=== PATIENT | female | born 1990 | race American Indian/Alaskan Native ===

== ENCOUNTER 2019-03-10 10:30 | Emergency (ER) | payer SELFPAY ==
[2019-03-10 10:44] VITALS: BP 114/73
--- NOTE | 2019-03-10 11:41 | Emergency Department Report ---
ED Dysuria HPI - [facility] Chief Complaint: Urogenital-Female Stated Complaint: HEADACHE Time Seen by Provider: 03/10/19 11:30 ED Review of Systems ROS: Stated complaint: HEADACHE Other details as noted in HPI ED Past Medical Hx - Past Medical History Previous Medical History?: No - Surgical History Past Surgical History?: No - Social History Smoking Status: Never Smoker Substance Use Type: None Dysuria Exam - Exam General: Vital signs noted. No distress. Alert and acting appropriately. ED Course Vital Signs 03/10/19 10:38 Temperature 98.7 F Pulse Rate 92 H Respiratory 18 Rate Blood Pressure 114/73 O2 Sat by Pulse 99 Oximetry Critical care attestation.: If time is entered above; I have spent that time in minutes in the direct care of this critically ill patient, excluding procedure time. ED Disposition Condition: Stable
[2019-03-10 12:30] LABS: Bacteria,Urine 1+ /HPF (Negative); Bilirubin,Urine NEG (Negative); Blood,Urine NEG (Negative); Color,Urine Colorless (Yellow); Protein,Urine <15 mg/dL mg/dL (Negative); Urobilinogen,Urine < 2.0 mg/dL (<2.0)
[2019-03-10 12:32] LABS: HCG Qualitative,Urine Negative (Negative)
[2019-03-10] MEDS ORDERED: FIORICET PO ONE (12:37)
[2019-03-10] MEDS ORDERED: SUDAFED 12 HR PO PRN (12:37)
--- NOTE | 2019-03-10 13:18 | Emergency Department Report ---
ED Headache HPI - General Chief Complaint: Urogenital-Female Stated Complaint: HEADACHE Time Seen by Provider: 03/10/19 11:30 - History of Present Illness Initial Comments: Pt. is a 29 y.o male who presents to ED c/o intermittent, dull/sharp, non radiation 8/10 intensity type headache x 5 days. Pt. states pain located to frontal and orbital region. Patient denies any trauma falls or injuries to the head. Patient states she is not a history of panic years ago. Patient states she is to take the medication but cannot recall the name of the medication. Pt. states that she hasn't taken any medication for this headache today Pt. denies fever, chills, nausea, vomiting, trauma, vision impairment, Timing/Duration: 24 hours Quality: moderate Head Injury Location: frontal, global Recent Head Trauma: no recent headache/trauma, frequent headaches Associated Symptoms: nasal congestion. denies: fatigue, facial pain, nausea/vomiting, seizures, stiff neck Allergies/Adverse Reactions: Allergies No Known Allergies Allergy (Unverified 03/10/19 10:32) Home Medications: Ambulatory Orders Butalb/Acetamin/Caff 50-325-40 [Fioricet 50-325-40] 1 tab PO Q8H PRN #30 tablet 03/10/19 Pseudoephedrine ER [Sudafed 12 Hr] 120 mg PO Q12HR PRN #10 tablet 03/10/19 ED Review of Systems ROS: Stated complaint: HEADACHE Other details as noted in HPI Comment: All other systems reviewed and negative ED Past Medical Hx - Past Medical History Previous Medical History?: No - Surgical History Past Surgical History?: No - Social History Smoking Status: Never Smoker Substance Use Type: None - Medications Home Medications: Home Medications Medication Instructions Recorded Confirmed Last Taken Type Butalb/Acetamin/Caff 50-325-40 1 tab PO Q8H PRN #30 tablet 03/10/19 Unknown Rx [Fioricet 50-325-40] Pseudoephedrine ER [Sudafed 12 Hr] 120 mg PO Q12HR PRN #10 tablet 03/10/19 Unknown Rx ED Physical Exam - General Limitations: No Limitations General appearance: alert, in no apparent distress - Head Head exam: Present: atraumatic, normocephalic - Eye Eye exam: Present: normal appearance, PERRL, EOMI. Absent: nystagmus Pupils: Present: normal accommodation - ENT ENT exam: Present: mucous membranes moist - Neck Neck exam: Present: normal inspection - Respiratory Respiratory exam: Present: normal lung sounds bilaterally. Absent: respiratory distress - Cardiovascular Cardiovascular Exam: Present: regular rate, normal rhythm. Absent: systolic murmur, diastolic murmur, rubs, gallop - GI/Abdominal GI/Abdominal exam: Present: soft, normal bowel sounds - Extremities Exam Extremities exam: Present: normal inspection - Back Exam Back exam: Present: normal inspection - Neurological Exam Neurological exam: Present: alert, oriented X3, CN II-XII intact, normal gait, reflexes normal - Expanded Neurological Exam Expanded Patient oriented to: Present: person, place, time Speech: Present: fluid speech Cerebellar function: Finger to Nose: Normal Motor strength exam: RUE: 5, LUE: 5, RLE: 5, LLE: 5 Best Eye Response (Leonardo): (4) open spontaneously Best Motor Response (Leonardo): (6) obeys commands Best Verbal Response (Leonardo): (5) oriented Colton Total: 15 - Psychiatric Psychiatric exam: Present: normal affect, normal mood - Skin Skin exam: Present: warm, dry, intact, normal color. Absent: rash ED Course Vital Signs 03/10/19 03/10/19 10:38 13:30 Temperature 98.7 F Pulse Rate 92 H Respiratory 18 18 Rate Blood Pressure 114/73 O2 Sat by Pulse 99 Oximetry ED Medical Decision Making - Medical Decision Making 29-year-old female presents with migraine headache was likely secondary to nasal/sinus congestion. Patient received fioricet and pseudoephedrine in the ED. Her analysis and urine test was conducted. All results are negative Patient had no neurological deficit. Patient's vital signs are normal she is able to be alert and oriented and ambulatory. Discussed follow-up with primary care physician. Referrals given to patient. Critical care attestation.: If time is entered above; I have spent that time in minutes in the direct care of this critically ill patient, excluding procedure time. ED Disposition Clinical Impression: Migraine headache without aura Disposition: DC-01 TO HOME OR SELFCARE Is pt being admited?: No Does the pt Need Aspirin: No Condition: Stable Instructions: Acute Headache (ED), Ocular Migraine (ED) Additional Instructions: Make sure to follow up with the primary care physician as discussed. Take all your medications as you've been prescribed. If you have any worsening symptoms or develop new symptoms please return to ED immediately. Prescriptions: Butalb/Acetamin/Caff 50-325-40 [Fioricet 50-325-40] 1 tab PO Q8H PRN #30 tablet PRN Reason: Headache Pseudoephedrine ER [Sudafed 12 Hr] 120 mg PO Q12HR PRN #10 tablet PRN Reason: Allergy Symptoms Referrals: PRIMARY CARE, [Primary Care Provider] - 3-5 Days MELITA DARNELL MD [Staff Physician] - 3-5 Days [facility] [Outside] - 3-5 Days TRINIDAD ROACH MD [Staff Physician] - 3-5 Days Forms: Accompanied Note, Work/School Release Form(ED) Time of Disposition: 13:19
== END 2019-03-10 13:30 | disposition home or self-care (01) ==
LOC: ED 10:30
DX: G43.009 Migraine without aura, not intractable, without status migrainosus (principal); Z79.899 Other long term (current) drug therapy
CPT/HCPCS: 81001; 81025

== ENCOUNTER 2020-09-20 11:18 | Emergency (ER) | payer SELFPAY ==
[2020-09-20 12:48] VITALS: BP 111/77
--- NOTE | 2020-09-20 14:06 | Emergency Department Report ---
ED Fall HPI - General Chief Complaint: Neck Pain/Injury Stated Complaint: CHEST/BACK/PAIN/HEADACHE Time Seen by Provider: 09/20/20 13:36 Source: patient Mode of arrival: Ambulatory - History of Present Illness Initial Comments: 30-year-old female presents to the ER today complaint of persistent neck pain and back pain after an accidental fall a month ago. Patient states that she was in her house, when she slipped on a wet floor and fell backwards. She states she was carrying a heavy box on her head at the time and the box struck her in neck as well. She states that she struck her head but denies any LOC. She states that she has been having posterior neck pain and diffuse back pain since the injury. She states that she had was not seen at the time of the injury, and t his is the first time she came to get checked out since the injury. She complains of pain with certain movements. She states that the pain in the neck radiates into the shoulders. She has been taking [id number] ibuprofen and Tylenol without much relief. She states that she currently does not have a primary care doctor. Denies any associated abdominal pain, chest pain, bowel or bladder incontinence, saddle anesthesia, lower extremity weakness, numbness or tingling or any other symptoms at this time. MD Complaint: fall, other (neck and back pain) -: month(s) (1) - Related Data Previous Rx's Medication Instructions Recorded Last Taken Type Butalb/Acetamin/Caff 50-325-40 1 tab PO Q8H PRN #30 tablet 03/10/19 Unknown Rx [Fioricet 50-325-40] Pseudoephedrine ER [Sudafed 12 Hr] 120 mg PO Q12HR PRN #10 tablet 03/10/19 Unknown Rx Ibuprofen [Motrin] 600 mg PO Q8H PRN #30 tablet 09/20/20 Unknown Rx methOCARBAMOL [Robaxin TAB] 750 mg PO Q8H PRN #30 tablet 09/20/20 Unknown Rx methylPREDNISolone [Medrol 4MG 4 mg PO DAILY #1 tab.ds.pk 09/20/20 Unknown Rx DOSEPAK (21 tabs)] Allergies Allergy/AdvReac Type Severity Reaction Status Date / Time No Known Allergies Allergy Unverified 03/10/19 10:32 ED Review of Systems ROS: Stated complaint: CHEST/BACK/PAIN/HEADACHE Other details as noted in HPI Comment: All other systems reviewed and negative Constitutional: denies: chills, diaphoresis, fever, malaise, weakness Eyes: denies: eye pain, eye discharge, vision change ENT: denies: ear pain, throat pain, dental pain, hearing loss, epistaxis, congestion Respiratory: denies: cough, shortness of breath, wheezing Cardiovascular: denies: chest pain, palpitations Endocrine: no symptoms reported Gastrointestinal: denies: abdominal pain, nausea, vomiting, diarrhea, constipation, hematemesis, hematochezia Musculoskeletal: back pain, other (neck pain) Skin: denies: rash, lesions Neurological: denies: headache, weakness, paresthesias Psychiatric: denies: anxiety, depression, auditory hallucinations, visual hallucinations, homicidal thoughts, suicidal thoughts Hematological/Lymphatic: denies: easy bleeding, easy bruising ED Past Medical Hx - Past Medical History Previous Medical History?: No - Surgical History Past Surgical History?: No - Social History Smoking Status: Never Smoker Substance Use Type: None - Medications Home Medications: Home Medications Medication Instructions Recorded Confirmed Last Taken Type Butalb/Acetamin/Caff 50-325-40 1 tab PO Q8H PRN #30 tablet 03/10/19 Unknown Rx [Fioricet 50-325-40] Pseudoephedrine ER [Sudafed 12 Hr] 120 mg PO Q12HR PRN #10 tablet 03/10/19 Unknown Rx Ibuprofen [Motrin] 600 mg PO Q8H PRN #30 tablet 09/20/20 Unknown Rx methOCARBAMOL [Robaxin TAB] 750 mg PO Q8H PRN #30 tablet 09/20/20 Unknown Rx methylPREDNISolone [Medrol 4MG 4 mg PO DAILY #1 tab.ds.pk 09/20/20 Unknown Rx DOSEPAK (21 tabs)] ED Physical Exam - General Limitations: No Limitations General appearance: alert, in no apparent distress - Head Head exam: Present: atraumatic, normocephalic, normal inspection - Eye Eye exam: Present: normal appearance, PERRL, EOMI Pupils: Present: normal accommodation - ENT ENT exam: Present: normal exam, mucous membranes moist - Neck Neck exam: Present: normal inspection, tenderness (diffuse midline and bilateral paraspinal muscle tenderness as well as trapezius muscle tenderness with some mild spasms), full ROM - Respiratory Respiratory exam: Present: normal lung sounds bilaterally. Absent: respiratory distress, wheezes, rales, rhonchi - Cardiovascular Cardiovascular Exam: Present: regular rate, normal rhythm, normal heart sounds - GI/Abdominal GI/Abdominal exam: Present: soft. Absent: distended, tenderness, guarding - Extremities Exam Extremities exam: Present: normal inspection - Back Exam Back exam: Present: normal inspection, full ROM, muscle spasm, paraspinal tenderness (Bilateral mid thoracic areas), vertebral tenderness (Mainly mid thoracic spine, and lower thoracic spine) - Neurological Exam Neurological exam: Present: alert, oriented X3, CN II-XII intact, normal gait. Absent: motor sensory deficit - Psychiatric Psychiatric exam: Present: normal affect, normal mood - Skin Skin exam: Present: intact ED Course Vital Signs 09/20/20 12:46 Temperature 97.6 F Pulse Rate 75 Respiratory 18 Rate Blood Pressure 111/77 O2 Sat by Pulse 98 Oximetry ED Medical Decision Making - Radiology Data Patient: LIZBETH GOLDSTEIN MR#: [id number] : 1990 Acct:[id number] Age/Sex: 30 / F ADM Date: 09/20/20 Loc: ED Attending Dr: Ordering Physician: COLTON العلي Date of Service: 09/20/20 Procedure(s): XR spine cervical 2-3V Accession Number(s): [id number] cc: COLTON العلي Fluoro Time In Minutes: XR spine thoracic 2 views, XR spine cervical 3 views INDICATION / CLINICAL INFORMATION: fall/back pain. COMPARISON: None available. FINDINGS: Cervical spine: Cervical spinal alignment is preserved. Vertebral body heights are intact. There is no evidence of fracture. Multilevel posterior marginal osteophytes with mild disc space narrowing at C4-C5 and C5-C6. Odontoid view is intact. Prevertebral soft tissues are within normal limits. Visualized lung apices are clear. Thoracic spine: Thoracic spinal alignment is preserved. Vertebral body heights are intact. There is no evidence of fracture. Mild multilevel degenerative disc disease noted. Soft tissues are unrem arkable. Visualized lungs are clear. IMPRESSION: 1. No acute osseous abnormality. 2. Mild cervical and thoracic spondylosis Signer Name: Rebecca Lott MD Signed: 09/20/2020 3:09 PM Workstation Name: [id number] Transcribed By: HOLLEY Dictated By: REBECCA LOTT MD Electronically Authenticated By: REBECCA LOTT MD Signed Date/Time: 09/20/20 1509 DD/ 1507 TD/TT: - Medical Decision Making 1608: Xrays show degenerative disc changes/arthritic changes but otherwise nothing acute. Patient currently is well-appearing, she is not in any acute distress, she is not toxic and appears well-hydrated. She is neurologically intact with a normal gait in the ER. Her vital signs are stable. At this time there is no indication for any further work-up, or imaging, admission or specialist consults. Discussed imaging results with patient. Discussed suspected diagnosis with patient. Recommend that she follows up outpatient with orthopedic/air quality specialist for further evaluation with possible MRI especially if her symptoms persist and also should be given referral to primary care doctor. Patient expressed understanding of instructions and agree with plan. Patient was stable at time of discharge. - Differential Diagnosis Subluxation of the spine, vertebral fracture Critical care attestation.: If time is entered above; I have spent that time in minutes in the direct care of this critically ill patient, excluding procedure time. ED Disposition Clinical Impression: DDD (degenerative disc disease), cervical, DDD (degenerative disc disease), thoracic, Back injury, Neck injury Disposition: - TO HOME OR SELFCARE Is pt being admited?: No Does the pt Need Aspirin: No Condition: Stable Instructions: Thoracic Strain, Degenerative Disk Disease, Neck Contusion, [id number] Additional Instructions: I recommend that you take the Medrol Dosepak and the Motrin and the muscle relaxer as prescribed. It is important that you follow-up with the accounting specialist/air quality specialist ([facility]) especially if your symptoms persist. You can also follow-up with primary care doctor listed on your discharge instructions. Return to the ER if your symptoms changes or worsens in any way. Prescriptions: methylPREDNISolone [Medrol 4MG DOSEPAK (21 tabs)] 4 mg PO DAILY #1 tab.ds.pk Ibuprofen [Motrin] 600 mg PO Q8H PRN #30 tablet PRN Reason: Pain methOCARBAMOL [Robaxin TAB] 750 mg PO Q8H PRN #30 tablet PRN Reason: pain Referrals: MANI HARMON MD [Staff Physician] - 3-5 Days LESA ALSTON MD [Staff Physician] - 3-5 Days Time of Disposition: 15:59
--- NOTE | 2020-09-20 15:13 | XRay Report ---
XR spine thoracic 2 views, XR spine cervical 3 views INDICATION / CLINICAL INFORMATION: fall/back pain. COMPARISON: None available. FINDINGS: Cervical spine: Cervical spinal alignment is preserved. Vertebral body heights are intact. There is n o evidence of fracture. Multilevel posterior marginal osteophytes with mild disc space narrowing at C 4-C5 and C5-C6. Odontoid view is intact. Prevertebral soft tissues are within normal limits. Visualiz ed lung apices are clear. Thoracic spine: Thoracic spinal alignment is preserved. Vertebral body heights are intact. There is n o evidence of fracture. Mild multilevel degenerative disc disease noted. Soft tissues are unremarkabl e. Visualized lungs are clear. IMPRESSION: 1. No acute osseous abnormality. 2. Mild cervical and thoracic spondylosis Signer Name: Terrell Lott MD Signed: 09/20/2020 3:09 PM Workstation Name: [id number]
== END 2020-09-20 14:00 | disposition home or self-care (01) ==
LOC: ED 11:18
DX: S19.9XXA Unspecified injury of neck, initial encounter (principal); S39.92XA Unspecified injury of lower back, initial encounter; M51.34 Other intervertebral disc degeneration, thoracic region; M50.30 Other cervical disc degeneration, unspecified cervical region; Z79.899 Other long term (current) drug therapy; X50.0XXA Overexertion from strenuous movement or load, initial encounter; Y93.89 Activity, other specified; Y92.89 Other specified places as the place of occurrence of the external cause; Y99.8 Other external cause status
CPT/HCPCS: 72040; 72072